=== PATIENT | female | born 1990 | race Two or more races ===

== ENCOUNTER → 2017-03-01 | Outpatient (CLI) | payer MEDICAID | LOC: BMCIMAGING 14:53 | PROVIDERS: ATTEND Urology | DX: Z09 Encounter for follow-up examination after completed treatment for conditions other than malignant neoplasm (principal); Z87.442 Personal history of urinary calculi; Q61.3 Polycystic kidney, unspecified; R93.421 Abnormal radiologic findings on diagnostic imaging of right kidney; R93.422 Abnormal radiologic findings on diagnostic imaging of left kidney ==